=== PATIENT | female | born 1950 | race Caucasian/White ===

== ENCOUNTER 2016-06-27 18:30 | Inpatient (IN) | payer OTHER ==
[~2016-06-27] VITALS: Ht 167.6 cm; Wt 95.3 kg
[2016-06-27] MEDS ORDERED: PLEASE ENTER HEIGHT AND WEIGHT MC SCH (21:00)
[2016-06-27] MEDS ORDERED: PLEASE ENTER ALLERGIES MC SCH ×2 (21:00)
[2016-06-27] MEDS ORDERED: NS + 20MEQ KCL 1,000 ML IV SCH (21:11)
[2016-06-27 21:26] VITALS: BP 113/67
[2016-06-27] MEDS ORDERED: POLYETHYLENE GLYCOL 17 GM PACKET PO PRN (21:30)
[2016-06-27] MEDS ORDERED: DOCUSATE 100 MG CAPSULE PO PRN (21:30)
[2016-06-27] MEDS ORDERED: CEFTRIAXONE PMX 1GM/50ML 50 ML IV SCH (23:00)
[2016-06-27] MEDS: OCTREOTIDE 500 MCG in SODIUM CHLORIDE 0.9% 249 ML IV SCH (23:10)
[2016-06-27 23:23] LABS: ASPARTATE AMINO TRANSFERASE 35 U/L (15-37); BLOOD UREA NITROGEN 46 mg/dL (7-18)
[2016-06-27] MEDS: LORazepam 2 MG/ML, 1ML IVPush PRN (23:31)
[2016-06-27] MEDS: morphine SULFATE 10 MG/ML, 1ML IVPush PRN (23:31)
[2016-06-27] MEDS ORDERED: PROPOFOL 100 ML IV PRN (23:43)
[2016-06-28] MEDS ORDERED: PHARMACY MAY ADJ FOR RENAL FX MC SCH
[2016-06-28] MEDS ORDERED: SODIUM CHLORIDE 0.9% 1,000 ML IV SCH
[2016-06-28] MEDS ORDERED: LIDOCAINE-MPF 1%, 2ML ENDO PRN
[2016-06-28] MEDS: ALBUTEROL/IPRATROPIUM 2.5MG/0.5MG, 3 ML INLINE SCH ×7 (02:15→21:49)
[2016-06-28] MEDS: PROPOFOL 100 ML IV PRN ×5 (02:20→22:41)
[2016-06-28 04:33] LABS: ABG COLLECTION SITE RIGHT BRACHIAL
[2016-06-28 04:47] LABS: BLOOD UREA NITROGEN 42 mg/dL (7-18)
[2016-06-28 04:50] VITALS: BP 113/66
[2016-06-28 04:50] LABS: ASPARTATE AMINO TRANSFERASE 31 U/L (15-37)
[2016-06-28] MEDS: SODIUM CHLORIDE 0.9% 1,000 ML IV SCH ×2 (04:55→11:22)
[2016-06-28] MEDS: LORazepam 2 MG/ML, 1ML IVPush PRN ×2 (06:41→19:25)
[2016-06-28] MEDS ORDERED: PANTOPRAZOLE 40 MG IV IVPush SCH (09:00)
[2016-06-28] MEDS: PANTOPRAZOLE 80 MG in SODIUM CHLORIDE 0.9% 100 ML IV SCH ×2 (13:37→22:40)
[2016-06-28] MEDS ORDERED: MORPHINE SULFATE 4 MG/ML, 1ML ONE (14:19)
[2016-06-28] MEDS: morphine SULFATE 10 MG/ML, 1ML IVPush PRN ×2 (14:22→19:25)
[2016-06-28] MEDS: OCTREOTIDE 500 MCG in SODIUM CHLORIDE 0.9% 249 ML IV SCH (18:21)
[2016-06-28] MEDS: NS + 20MEQ KCL 1,000 ML IV SCH (19:29)
[2016-06-29] MEDS: ALBUTEROL/IPRATROPIUM 2.5MG/0.5MG, 3 ML INLINE SCH ×3 (01:39→10:00)
[2016-06-29] MEDS: SODIUM CHLORIDE 0.9% 1,000 ML IV SCH ×2 (02:49→09:30)
[2016-06-29 02:51] VITALS: BP 107/53
[2016-06-29 04:46] LABS: ABG COLLECTION SITE RIGHT RADIAL; COLLATERAL CIRCULATION TESTING NORMAL
[2016-06-29 04:53] LABS: ASPARTATE AMINO TRANSFERASE 15 U/L (15-37); BLOOD UREA NITROGEN 23 mg/dL (7-18)
[2016-06-29] MEDS: NS + 20MEQ KCL 1,000 ML IV SCH (07:11)
[2016-06-29] MEDS ORDERED: FENTANYL PF 100 MCG/2ML ONE (07:53)
[2016-06-29] MEDS ORDERED: MIDAZOLAM 1 MG/ML, 5ML ONE (07:54)
[2016-06-29] MEDS: morphine SULFATE 10 MG/ML, 1ML IVPush PRN (07:55)
[2016-06-29] MEDS: PANTOPRAZOLE 80 MG in SODIUM CHLORIDE 0.9% 100 ML IV SCH ×2 (14:30→23:32)
[2016-06-29] MEDS: OCTREOTIDE 500 MCG in SODIUM CHLORIDE 0.9% 249 ML IV SCH (17:30)
[2016-06-29] MEDS: OXYcodone/APAP 5/325MG TABLET PO PRN ×2 (18:23→23:56)
[2016-06-30] MEDS: ONDANSETRON 2MG/ML, 2ML IVPush PRN ×3 (00:03→18:58)
[2016-06-30 04:00] VITALS: BP 138/83
[2016-06-30 04:34] LABS: ABG COLLECTION SITE RIGHT RADIAL; COLLATERAL CIRCULATION TESTING NORMAL
[2016-06-30] MEDS ORDERED: MAGNESIUM SULFATE PMX 4GM/100M 100 ML IV ONE (07:00)
[2016-06-30] MEDS ORDERED: MIDAZOLAM 1 MG/ML, 5ML ONE (10:03)
[2016-06-30] MEDS ORDERED: FENTANYL PF 100 MCG/2ML ONE (10:03)
[2016-06-30] MEDS: PANTOPRAZOLE 80 MG in SODIUM CHLORIDE 0.9% 100 ML IV SCH ×2 (10:50→21:02)
[2016-06-30] MEDS ORDERED: EPINEPHRINE SYRINGE 0.1 MG/ML, 10ML ONE (11:12)
[2016-06-30] MEDS: OXYcodone/APAP 5/325MG TABLET PO PRN (14:38)
[2016-06-30] MEDS: OCTREOTIDE 500 MCG in SODIUM CHLORIDE 0.9% 249 ML IV SCH (14:40)
[2016-06-30] MEDS ORDERED: DULO30CA2 PO (14:48)
[2016-06-30] MEDS ORDERED: GABA300C10 PO (14:48)
[2016-06-30] MEDS ORDERED: FLUT250D XX (14:48)
[2016-06-30] MEDS ORDERED: GABA600T2 PO (14:48)
[2016-06-30] MEDS ORDERED: AMLO5TAB2 PO (14:48)
[2016-06-30] MEDS ORDERED: LEVO75TA5 PO (14:48)
[2016-06-30] MEDS ORDERED: ENAL10TA PO (14:48)
[2016-06-30] MEDS: SUCRALFATE 1 GM/10 ML UDC PO SCH ×2 (17:54→20:53)
[2016-06-30] MEDS ORDERED: ALBUTEROL SULFATE 2.5 MG/3 ML ONE (22:23)
[2016-06-30] MEDS ORDERED: ALBUTEROL SULFATE 2.5 MG/3 ML NPPB PRN (22:30)
[2016-07-01] MEDS: ONDANSETRON 2MG/ML, 2ML IVPush PRN ×4 (01:18→22:55)
[2016-07-01] MEDS: OXYcodone/APAP 5/325MG TABLET PO PRN ×4 (01:28→22:01)
[2016-07-01 04:00] VITALS: BP 126/68
[2016-07-01 04:26] LABS: ABG COLLECTION SITE RIGHT RADIAL; COLLATERAL CIRCULATION TESTING NORMAL
[2016-07-01] MEDS ORDERED: LEVOTHYROXINE 75 MCG TABLET PO SCH (06:00)
[2016-07-01] MEDS: PANTOPRAZOLE 80 MG in SODIUM CHLORIDE 0.9% 100 ML IV SCH (06:08)
[2016-07-01] MEDS: SUCRALFATE 1 GM/10 ML UDC PO SCH ×4 (06:25→22:00)
[2016-07-01] MEDS: GABAPENTIN 300 MG CAPSULE PO SCH ×4 (08:39→22:01)
[2016-07-01] MEDS: AMLODIPINE 5 MG TABLET PO SCH (08:39)
[2016-07-01] MEDS: LEVOTHYROXINE 75 MCG TABLET PO SCH (08:39)
[2016-07-01] MEDS: ENALAPRIL 10 MG TABLET PO SCH (08:39)
[2016-07-01] MEDS: DULOXETINE 30 MG CAPSULE.DR PO SCH ×2 (08:39→22:01)
[2016-07-01] MEDS: PANTOPROZOLE 40MG TABLET PO SCH ×2 (12:00→23:53)
[2016-07-01 15:35] VITALS: BP 133/82
[2016-07-01 18:50] VITALS: BP 162/91
[2016-07-01] MEDS: FLUOXETINE 10 MG CAP PO SCH (22:01)
[2016-07-02 02:14] VITALS: BP 149/77
[2016-07-02 07:28] VITALS: BP 147/81
[2016-07-02] MEDS: OXYcodone/APAP 5/325MG TABLET PO PRN ×3 (08:04→22:20)
[2016-07-02] MEDS: ONDANSETRON 2MG/ML, 2ML IVPush PRN (08:05)
[2016-07-02] MEDS: LEVOTHYROXINE 75 MCG TABLET PO SCH (08:06)
[2016-07-02] MEDS: SUCRALFATE 1 GM/10 ML UDC PO SCH ×4 (08:06→20:41)
[2016-07-02] MEDS: DULOXETINE 30 MG CAPSULE.DR PO SCH ×2 (08:06→20:41)
[2016-07-02] MEDS: GABAPENTIN 300 MG CAPSULE PO SCH ×4 (08:06→20:41)
[2016-07-02] MEDS: ENALAPRIL 10 MG TABLET PO SCH (08:07)
[2016-07-02] MEDS: PANTOPROZOLE 40MG TABLET PO SCH (11:33)
[2016-07-02] MEDS: AMLODIPINE 5 MG TABLET PO SCH (11:33)
[2016-07-02 15:10] VITALS: BP 145/86
[2016-07-02 18:55] VITALS: BP 149/80
[2016-07-02] MEDS: FLUOXETINE 10 MG CAP PO SCH (20:42)
[2016-07-03] MEDS: PANTOPROZOLE 40MG TABLET PO SCH ×2 (00:23→12:54)
[2016-07-03 01:09] VITALS: BP 133/75
[2016-07-03] MEDS ORDERED: LEVOTHYROXINE 75 MCG TABLET PO SCH (06:00)
[2016-07-03 07:05] VITALS: BP 126/71
[2016-07-03] MEDS: ENALAPRIL 10 MG TABLET PO SCH (07:56)
[2016-07-03] MEDS: SUCRALFATE 1 GM/10 ML UDC PO SCH ×3 (07:56→16:51)
[2016-07-03] MEDS: DULOXETINE 30 MG CAPSULE.DR PO SCH (07:57)
[2016-07-03] MEDS: AMLODIPINE 5 MG TABLET PO SCH (07:57)
[2016-07-03] MEDS: GABAPENTIN 300 MG CAPSULE PO SCH ×2 (08:00→16:51)
[2016-07-03 08:13] LABS: ANISOCYTOSIS 1+; POLYCHROMASIA 1+
[2016-07-03] MEDS: OXYcodone/APAP 5/325MG TABLET PO PRN (11:15)
[2016-07-03 12:49] VITALS: BP 137/72
[2016-07-03] MEDS ORDERED: PANT40TA5 PO (14:37)
== END 2016-07-03 18:25 | disposition home or self-care (01) | DRG 377 ==
LOC: CCU 19:49 → 3NE 07-01 09:44
PROVIDERS: ADMIT Hospitalist; ATTEND Family Medicine
PROC: 5A1945Z Respiratory Ventilation, 24-96 Consecutive Hours (ICD-10-PCS; principal; 2016-06-27)
PROC: 0BH17EZ Insertion of Endotracheal Airway into Trachea, Via Natural or Artificial Opening (ICD-10-PCS; 2016-06-27)
PROC: 0T9B70Z Drainage of Bladder with Drainage Device, Via Natural or Artificial Opening (ICD-10-PCS; 2016-06-27)
PROC: 0DC68ZZ Extirpation of Matter from Stomach, Via Natural or Artificial Opening Endoscopic (ICD-10-PCS; 2016-06-29)
PROC: 3E0G8GC Introduction of Other Therapeutic Substance into Upper GI, Via Natural or Artificial Opening Endoscopic (ICD-10-PCS; 2016-06-30)
DX: K28.4 Chronic or unspecified gastrojejunal ulcer with hemorrhage (principal); N17.0 Acute kidney failure with tubular necrosis; J96.90 Respiratory failure, unspecified, unspecified whether with hypoxia or hypercapnia; N39.0 Urinary tract infection, site not specified; D62 Acute posthemorrhagic anemia; J98.11 Atelectasis; Z99.11 Dependence on respirator [ventilator] status; Z96.619 Presence of unspecified artificial shoulder joint; Z96.659 Presence of unspecified artificial knee joint; E11.9 Type 2 diabetes mellitus without complications; F32.9 Major depressive disorder, single episode, unspecified; J45.909 Unspecified asthma, uncomplicated; M19.90 Unspecified osteoarthritis, unspecified site; I10 Essential (primary) hypertension; E66.9 Obesity, unspecified; K28.9 Gastrojejunal ulcer, unspecified as acute or chronic, without hemorrhage or perforation; Z88.8 Allergy status to other drugs, medicaments and biological substances; Z88.5 Allergy status to narcotic agent; Z82.49 Family history of ischemic heart disease and other diseases of the circulatory system; Z83.3 Family history of diabetes mellitus; Z98.84 Bariatric surgery status; Z90.49 Acquired absence of other specified parts of digestive tract; Z68.33 Body mass index [BMI] 33.0-33.9, adult
CPT/HCPCS: 36415; 36600; 71010; 80053; 81001; 82803; 82962; 83735; 84100; 84478; 85014; 85018; 85025; 85610; 86850; 86900; 87070; 87077; 87081; 87086; 87186; 87205; 94002; 94003; 94640; 99152; J0696; J2250; J2354; J2405; J2704; J3010; J3480; J7613; J7620; C9113; J2060; J2270; J3475; J7030; J7050